=== PATIENT | female | born 1965 | race Caucasian/White ===

== ENCOUNTER → 2024-09-04 09:40 | Outpatient (REF) | payer MEDICARE, SELFPAY ==
[2024-09-04 10:43] LABS: % Basophils 0.7 % (0-2); % Eosinophils 3.8 % (0-6); % Immature Granulocytes 0.4 % (0-0.5); % Lymphocytes 29.3 % (20.5-51.1); % Monocytes 10.2 % (1.7-9.3); % Neutrophils 55.6 % (42.2-75.2); Absolute Eosinophils 0.2 10^3/uL (0-0.7); Absolute Lymphocytes 1.3 10^3/uL (1.2-3.4); Absolute Monocytes 0.5 10^3/uL (0.1-0.6); Absolute Neutrophils 2.5 10^3/uL (1.4-6.5); Hematocrit 44.9 % (37.0-47.0); Hemoglobin 15.3 g/dL (12.0-16.0); Mean Corp Hgb Conc. 34.1 g/dL (33.0-37.0); Mean Corpuscular Hgb 28.1 pg (27.0-31.0); Mean Corpuscular Volume 82.5 fL (81.0-99.0); Mean Platelet Volume 10.5 fL (7.4-10.4); Nucleated Red Blood Cells % 0 %; Platelet Count 203 10^3/uL (130-400); Red Blood Cell Count 5.44 10^6/uL (4.20-5.40); Red Cell Dist. Width 12.8 % (11.5-14.5); White Blood Cell Count 4.5 10^3/uL (4.8-10.8)
[2024-09-04 10:47] LABS: Urine Albumin 1+ (Neg - Trace); Urine Bilirubin Negative (Negative); Urine Character Clear (Clear); Urine Color Yellow; Urine Glucose Negative (Negative); Urine Ketone Negative (Negative); Urine Leukocyte 2+ (Negative); Urine Nitrite Negative (Negative); Urine Occult Blood Negative (Negative); Urine Specific Gravity 1.015 (<1.030); Urine Urobilinogen Negative (Neg - 1+); Urine pH 6.5 (5.0-9.0)
[2024-09-04 11:04] LABS: Urine Urothelial Cell 16-20 /LPF (FEW)
[2024-09-04 11:05] LABS: Urine Amorphous Seen; Urine Mucus Few; Urine Red Blood Cell 0-2 /HPF (0-2)
[2024-09-04 12:10] LABS: ALT (SGPT) 24 U/L (0-35); AST (SGOT) 27 U/L (14-36); Albumin 4.8 g/dl (3.5-5.0); Alkaline Phosphatase 104 U/L (38-126); Blood Urea Nitrogen 11 mg/dl (7-17); Calcium 9.4 mg/dl (8.4-10.2); Carbon Dioxide 22 mmol/L (22-30); Chloride 104 mmol/L (98-107); Glucose 87 mg/dl (70-99); HDL Cholesterol 53 mg/dl; LDL Cholesterol, Calculated 200 mg/dl; Potassium 4.2 mmol/L (3.5-5.1); Sodium 138 mmol/L (135-145); Total Bilirubin 0.8 mg/dl (0.2-1.3); Total Cholesterol 281 mg/dl (50-199); Total Protein 6.9 g/dl (6.3-8.2); Triglyceride 144 mg/dl (10-149); Very Low Density Lipoprotein 28 mg/dl (0-30); eGFR > 60.00
[2024-09-04 12:58] LABS: TSH 1.71 uIU/ml (0.47-4.68)
== END ==
LOC: REG 09:40
PROVIDERS: ATTENDING PHYSICIAN Nurse Practitioner Family
DX: Z13.29 Encounter for screening for other suspected endocrine disorder (principal); Z13.0 Encounter for screening for diseases of the blood and blood-forming organs and certain disorders involving the immune mechanism; Z13.1 Encounter for screening for diabetes mellitus; Z13.220 Encounter for screening for lipoid disorders
CPT/HCPCS: 36415; 80053; 80061; 81003; 81015; 84443; 85025

== ENCOUNTER → 2024-10-07 14:46 | Outpatient (REF) | payer OTHER, SELFPAY ==
[2024-10-07 18:55] LABS: Urine Albumin Negative (Neg - Trace); Urine Bilirubin Negative (Negative); Urine Character Clear (Clear); Urine Color Yellow; Urine Glucose Negative (Negative); Urine Ketone Negative (Negative); Urine Leukocyte 3+ (Negative); Urine Nitrite Negative (Negative); Urine Occult Blood 4+ (Negative); Urine Specific Gravity 1.005 (<1.030); Urine Urobilinogen Negative (Neg - 1+)
[2024-10-07 19:08] LABS: Urine Squamous Cell 0-2 /LPF (Few)
[2024-10-07 19:09] LABS: Urine Bacteria Many (Negative); Urine Red Blood Cell 30-40 /HPF (0-2); Urine White Cell 80-90 /HPF (0-5)
== END ==
LOC: CLAB 14:46
PROVIDERS: ATTENDING PHYSICIAN Family Medicine
DX: N39.0 Urinary tract infection, site not specified (principal)
CPT/HCPCS: 81003; 81015; 87077; 87086

== ENCOUNTER 2025-03-24 21:57 | Emergency (ER) | payer OTHER, SELFPAY ==
[2025-03-24 22:02] VITALS: BP 146/80
[2025-03-24 22:19] VITALS: BMI 26.1
[2025-03-24 22:36] LABS: Hematocrit 40.5 % (37.0-47.0); Hemoglobin 14.0 g/dL (12.0-16.0); Mean Corp Hgb Conc. 34.6 g/dL (33.0-37.0); Mean Corpuscular Volume 80.5 fL (81.0-99.0); Nucleated Red Blood Cells % 0 %; Platelet Count 159 10^3/uL (130-400); Red Cell Dist. Width 12.7 % (11.5-14.5)
[2025-03-24 23:12] LABS: ALT (SGPT) 24 U/L (0-35); AST (SGOT) 28 U/L (14-36); Albumin 4.2 g/dl (3.5-5.0); Alkaline Phosphatase 121 U/L (38-126); Blood Urea Nitrogen 19 mg/dl (7-17); Calcium 9.4 mg/dl (8.4-10.2); Carbon Dioxide 23 mmol/L (22-30); Chloride 106 mmol/L (98-107); Estimated Creatinine Clearance 86 ml/min; Glucose 140 mg/dl (70-99); Potassium 3.4 mmol/L (3.5-5.1); Sodium 137 mmol/L (135-145); Total Protein 6.5 g/dl (6.3-8.2); eGFR > 60.00
--- NOTE | 2025-03-24 23:35 | ED.GENMED ---
History of Present Illness
General
Chief Complaint: Change in Mental Status
Source: patient and spouse
Time Seen by Provider: 03/24/25 23:20
History of Present Illness
History of Present Illness:
59-year-old female presents to the emergency room for evaluation of feeling dyspneic, nauseous, palpitations. Patient has a history of anxiety and has had anxiety attacks in the past. However this is more severe. At the time of my evaluation her
symptoms had abated and she feels back to normal. Patient states she was sitting watching football with her when she began to feel onset of her symptoms. She went upstairs and at the bedroom where things spiraled out of control.
states that at 1 point the patient seemed to be flailing her arms. Evidently this is how she appeared when she arrived via ambulance. Patient has lorazepam to take but was unable to find the prescription bottle.
Past History
Past History
ED Past Medical History: Other (Depression, GERD) and Other (MS)
Social History
Tobacco: Non-smoker
Personal:
Living: with family
Employment: Employed (self employed)
Phy Exam
Physical Exam
Physical Exam:
General: Awake, Alert, Oriented X3. No acute distress.
Vitals: unremarkable
Head: Atraumatic
Eyes: Pupils equal, EOMI
Throat: Airway intact, no exudates
Neck: Trachea midline
Lungs: Clear and equal b/l
Heart: Regular rate, no murmurs
Abd: Soft, Nontender, No pulsatile mass
Neuro: Nonfocal
Skin: Warm, dry, no rash
Extremities: pulses equal b/l, no edema
Course
Orders/Labs/Results
Orders:
Orders
03/24/25 22:28
CMP [Comprehensive Metabolic Panel] Urgent
Complete Blood Count/With Diff Urgent
03/24/25 22:41
EKG [Electrocardiogram (*1)] Urgent
Reason for Study: Shortness of Breath
EKG- Treatment ONCE
03/24/25 23:54
Troponin I Urgent
Abnormal Lab Results
03/24/25
22:28
MCV 80.5 L fL
(81.0-99.0)
Potassium 3.4 L mmol/L
(3.5-5.1)
BUN 19 H mg/dl
(7-17)
Creatinine 0.5 L mg/dL
(0.6-1.0)
Glucose 140 H mg/dl
(70-99)
03/24/25 22:28
03/24/25 22:28
Vital Signs
Initial and Last Documented VS:
Initial Vital Signs
Pulse Resp BP Pulse Ox
90 28 146/80 98
03/24/25 22:02 03/24/25 22:02 03/24/25 22:02 03/24/25 22:02
Last Documented Vital Signs
Temp Pulse Resp BP Pulse Ox
98.4 F 87 18 134/78 98
03/25/25 00:47 03/25/25 00:47 03/25/25 00:47 03/25/25 00:50 03/25/25 00:30
MDM/Problems Addressed
Differential Diagnosis Includes:
SVT, paroxysmal atrial fibrillation, anxiety
MDM/Problems Addressed:
EKG here is unremarkable. Labs are unremarkable. No dysrhythmia noted on monitoring tech. Overall presentation seems most consistent with a anxiety or panic attack. Patient feels back to baseline now. Stable for discharge home and outpatient
follow-up.
*Pulse Oximetry
SaO2: 98
Oxygen Mode of Delivery: Room air
Patient hypoxic: no
*EKG
Interpreted by ED Provider?: Yes
Heart Rate: 83
Rate: normal
Rhythm: sinus
Lindsay: normal axis
Interval: normal interval
QRS Pattern: normal QRS
Ischemia: no ischemia
*Well Control Instructor Interpretation
Rate: normal
Interpretation: normal
Rhythm: sinus
*Critical Care Note
Total Time (30-74mins, 75-104mins- exclusive of procedures): Not Applicable
ED Attending Note
-
Portions of this chart may have been created with voice recognition software.� Occasional wrong word or��sound alike� substitutions may have occurred due to the inherent limitations of voice recognition software.
Discharge Plan
Departure
Patient Disposition: Home (Routine Discharge)
Date of Disposition: 03/25/25
Time of Disposition: 00:43
Patient with high blood pressure during this ER visit?: Yes
Condition: Good
Discharge Problem:
Palpitation, Panic attack
Instructions: Anxiety, Adult (DC), Palpitations - ED (DC)
Prescriptions:
No Action
zolpidem 5 MG tablet
5 mg PO HS
Lorazepam
1 tab PO PRN PRN (Reason: anxiety)
Propranolol HCl:
1 tab PO PRN PRN (Reason: panic attacks)
acetaminophen 325 MG tablet
650 mg PO Q4HPRN PRN (Reason: mild pain) Qty: 0 0RF
fluoxetine [Prozac] 40 mg Capsule
40 mg PO DAILY
Referrals:
Lizbeth Gaming CRNP [Family Provider, Family Practice]
Interventions
Interventions:
*Risk Screen - Suicide Last Done: 03/24/25 22:19
*General Assessment Last Done: 03/24/25 22:19
*Neglect/Abuse Screening Last Done: 03/24/25 22:19
*ED- Fall Risk Assessment Last Done: 03/24/25 22:19
*ED COVID-19 Vaccine History Last Done: 03/24/25 22:19
*Nursing Disposition Last Done: 03/25/25 00:50
XJ-Eqopqm-Phbfpyclfh Assessment Last Done: 03/24/25 23:32
ED- Neurological Assessment Last Done: 03/24/25 23:32
ED-Psychological Assessment Last Done: 03/24/25 23:32
ED Swallowing Screen Last Done: 03/24/25 23:32
Discharge Date and Time
Discharge Date/Time: 03/25/25 00:52
Print Language: UGANDAN
[2025-03-25 00:39] LABS: Troponin I < 0.012 ng/ml
[2025-03-25 00:50] VITALS: BP 134/78
== END 2025-03-25 00:52 | disposition home or self-care (01) ==
LOC: EMR 21:57
PROVIDERS: Emergency Medicine; Physician Assistant Medical; EMERGENCY PHYSICIAN Emergency Medicine; FAMILY PHYSICIAN Nurse Practitioner Family
DX: R06.00 Dyspnea, unspecified (principal); R11.0 Nausea; R00.2 Palpitations; F41.0 Panic disorder [episodic paroxysmal anxiety]; R03.0 Elevated blood-pressure reading, without diagnosis of hypertension; F32.A Depression, unspecified; F41.9 Anxiety disorder, unspecified; G35 Multiple sclerosis; G62.9 Polyneuropathy, unspecified; K21.9 Gastro-esophageal reflux disease without esophagitis
CPT/HCPCS: 99283; 80053; 84484; 85025; 93005